=== PATIENT | female | born 1995 | race African-American/Black ===

== ENCOUNTER 2017-02-18 11:23 | Emergency (ER) | payer OTHER ==
[~2017-02-18] VITALS: Ht 165.1 cm; Wt 60.0 kg
[~2017-02-18 11:23] MED LIST: oral birth control
[2017-02-18 11:25] VITALS: BP 115/65; PULSE 72; RESP 14; TEMP 98.1; O2SAT 98
[2017-02-18] MEDS ORDERED: CITA10TA4 PO (11:42)
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
== END 2017-02-18 12:37 | disposition home or self-care (01) ==
LOC: NEPD 11:23
DX: S06.0X0A Concussion without loss of consciousness, initial encounter (principal); S16.1XXA Strain of muscle, fascia and tendon at neck level, initial encounter; V87.7XXA Person injured in collision between other specified motor vehicles (traffic), initial encounter; Y92.414 Local residential or business street as the place of occurrence of the external cause
CPT/HCPCS: 99282